=== PATIENT | male | born 2005 | race African-American/Black ===

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

== ENCOUNTER 2024-10-14 19:54 | Emergency (ER) | payer MEDICAID ==
[~2024-10-14] VITALS: Ht 177.8 cm; Wt 72.0 kg
[~2024-10-14 19:54] MED LIST changes: +MUPI1OIN4 TP
[2024-10-14 20:07] VITALS: O2SAT 100
[2024-10-14 22:27] LABS: BASOPHILS % 1.0 % (0.0-2.0); EOSINOPHILS % 0.1 % (0.0-5.0); HEMATOCRIT. 42.3 % (42.0-52.0); HEMOGLOBIN. 13.9 g/dL (14.0-18.0); LYMPHOCYTES % 14.2 % (20.0-50.0); MEAN PLATELET VOLUME 9.6 fl (7.4-10.4); MONOCYTES % 6.7 % (2.0-8.0); NEUTROPHILS % 78.0 % (40.0-76.0); PLATELET 210 x1000/uL (130-400); RED BLOOD CELL COUNT 4.86 mill/uL (4.7-6.1); RED CELL DISTRIBUTION WIDTH 13.5 % (11.6-14.6)
[2024-10-14 22:48] LABS: CREATININE 1.0 mg/dL (0.6-1.3); TROPONIN I HIGH SENSITIVITY < 4 ng/L (3.0-53); UREA NITROGEN BLOOD 16 mg/dL (9-23)
[2024-10-15 00:17] LABS: *AMPHETAMINES SCREEN URINE NEGATIVE (NEGATIVE); *BARBITURATES SCREEN URINE NEGATIVE (NEGATIVE); *BENZODIAZEPINES SCREEN URINE NEGATIVE (NEGATIVE)
[2024-10-15 00:18] LABS: *COCAINE SCREEN URINE NEGATIVE (NEGATIVE); CANNABINOID URINE SCREEN PRESUMPTIVE POSITIVE (NEGATIVE); ECSTASY MDMA SCREEN URINE NEGATIVE (NEGATIVE); METHADONE URINE SCREEN NEGATIVE (NEGATIVE); OPIATES URINE SCREEN NEGATIVE (NEGATIVE); PHENCYCLIDINE URINE SCREEN NEGATIVE (NEGATIVE)
[2024-10-15 00:24] LABS: TROPONIN I HIGH SENSITIVITY < 4 ng/L (3.0-53)
[2024-10-15 01:05] VITALS: BP 115/50; PULSE 59; RESP 12; TEMP 36.7; O2SAT 99
== END 2024-10-15 01:07 | disposition home or self-care (01) ==
LOC: ER 19:54
DX: R06.02 Shortness of breath (principal); T40.715A Adverse effect of cannabis, initial encounter; Z79.899 Other long term (current) drug therapy; Y92.89 Other specified places as the place of occurrence of the external cause
CPT/HCPCS: 36415; 71045; 80048; 80305; 84484; 85025; 93005; 99285